=== PATIENT | female | born 1990 | race Caucasian/White ===

== ENCOUNTER 2018-10-01 15:13 | Emergency (ER) | payer OTHER ==
[~2018-10-01] VITALS: Ht 167.6 cm; Wt 72.1 kg
[2018-10-01] MEDS ORDERED: SUBOXONE 12 MG1 EACH SL (15:22)
== END 2018-10-01 15:58 | disposition home or self-care (01) ==
LOC: ER 15:13
DX: S01.21XA Laceration without foreign body of nose, initial encounter (principal); S01.511A Laceration without foreign body of lip, initial encounter; S01.81XA Laceration without foreign body of other part of head, initial encounter; V03.90XA Pedestrian on foot injured in collision with car, pick-up truck or van, unspecified whether traffic or nontraffic accident, initial encounter
CPT/HCPCS: 99284

== ENCOUNTER → 2018-10-18 | Outpatient (CLI) | payer OTHER ==
[~2018-10-18] MED LIST: SUBOXONE 12 MG1 EACH SL
[2018-10-20 06:07] LABS: CHLAMYDIA TRACHOMATIS, NAA Positive (Negative); NEISSERIA GONORRHOEAE, NAA Negative (Negative)
== END | disposition home or self-care (01) ==
LOC: LAB SRC 10:49 → LAB SHORT 10:49
PROVIDERS: Nurse Practitioner Family
DX: Z72.53 High risk bisexual behavior (principal)
CPT/HCPCS: 87491; 87591

== ENCOUNTER → 2019-02-19 | Outpatient (CLI) | payer OTHER ==
[2019-02-21 01:06] LABS: CHLAMYDIA TRACHOMATIS, NAA Negative (Negative); NEISSERIA GONORRHOEAE, NAA Negative (Negative)
== END | disposition home or self-care (01) ==
LOC: LAB SHORT 11:38 → LAB 11:38
PROVIDERS: Registered Nurse
DX: Z72.53 High risk bisexual behavior (principal)
CPT/HCPCS: 87491; 87591

== ENCOUNTER 2019-03-19 21:27 | Emergency (ER) | payer OTHER ==
[~2019-03-19] VITALS: Ht 167.6 cm; Wt 72.6 kg
[2019-03-19] MEDS ORDERED: Amoxicillin875 MG PO (21:40)
[2019-03-19] MEDS ORDERED: SUBOXONE PO (21:44)
== END 2019-03-19 22:07 | disposition home or self-care (01) ==
LOC: ER 21:27
DX: K04.7 Periapical abscess without sinus (principal); Z79.899 Other long term (current) drug therapy; F17.210 Nicotine dependence, cigarettes, uncomplicated
CPT/HCPCS: 99282

== ENCOUNTER → 2019-06-06 | Outpatient (CLI) | payer OTHER ==
[~2019-06-06] MED LIST changes: +Amoxicillin875 MG PO; +SUBOXONE PO
[2019-07-04 13:23] LABS: SOURCE: ENDOCERVICAL; TEST ORDERED: PAP
== END ==
LOC: LAB 12:13 → LAB SHORT 12:13
PROVIDERS: Registered Nurse
DX: Z12.4 Encounter for screening for malignant neoplasm of cervix (principal)
CPT/HCPCS: G0123

== ENCOUNTER → 2020-02-05 | Outpatient (CLI) | payer OTHER ==
[2020-02-07 12:15] LABS: HPV 16 Negative (Negative); HPV 18 Negative (Negative); HPV OTHER HR TYPES Positive (Negative)
== END | disposition home or self-care (01) ==
LOC: LAB 17:38 → LAB SHORT 17:38
PROVIDERS: Registered Nurse
DX: Z12.4 Encounter for screening for malignant neoplasm of cervix (principal)
CPT/HCPCS: 87624; 87625; G0123

== ENCOUNTER → 2020-02-23 | Outpatient (CLI) | payer OTHER | LOC: OLS 14:03 → LAB SHORT 14:03 → LAB FUT 02-19 15:35 | DX: B18.2 Chronic viral hepatitis C (principal) | CPT/HCPCS: 81025 ==

== ENCOUNTER → 2020-03-16 | Outpatient (CLI) | payer OTHER | END | disposition home or self-care (01) | LOC: LAB SHORT 13:28 → PLD 13:28 | DX: R87.810 Cervical high risk human papillomavirus (HPV) DNA test positive (principal) | CPT/HCPCS: 88305 ==

== ENCOUNTER → 2021-06-29 | Outpatient (CLI) | payer OTHER ==
[2021-07-01 01:10] LABS: CHLAMYDIA TRACHOMATIS, NAA Negative (Negative)
== END | disposition home or self-care (01) ==
LOC: LAB SHORT 14:15 → LAB 14:15
PROVIDERS: Registered Nurse
DX: N89.8 Other specified noninflammatory disorders of vagina (principal); Z72.51 High risk heterosexual behavior
CPT/HCPCS: 87491; 87591

== ENCOUNTER 2023-10-29 02:34 | Emergency (ER) | payer OTHER ==
[~2023-10-29] VITALS: Ht 167.6 cm; Wt 81.7 kg
[2023-10-29 03:10] VITALS: BP 133/86
== END 2023-10-29 04:36 | disposition home or self-care (01) ==
LOC: ER 02:34
DX: N89.8 Other specified noninflammatory disorders of vagina (principal); F17.210 Nicotine dependence, cigarettes, uncomplicated
CPT/HCPCS: 99282